=== PATIENT | female | born 1965 | race African-American/Black ===

== ENCOUNTER 2018-03-30 20:21 | Emergency (ER) | payer MEDICAID ==
--- NOTE | 2018-03-30 20:41 | ER Document Report ---
ED Medical Screen (RME) - General Chief Complaint: Flank Pain Stated Complaint: SIDE PAIN Time Seen by Provider: 03/30/18 20:40 Notes: Patient is a 52-year-old female who presents with left-sided abdominal pain and malodorous urine. She also has multiple other complaints. PE: NAD. Abdomen soft and non-tender (although exam limited in RME chair). I have greeted and performed a rapid initial assessment of this patient. A comprehensive ED assessment and evaluation of the patient, analysis of test results and completion of the medical decision making process will be conducted by additional ED providers. TRAVEL OUTSIDE OF THE [place] IN LAST 30 DAYS: No - Related Data Allergies/Adverse Reactions: Penicillins Allergy (Verified 03/30/18 20:25) Past Medical History - Social History Chew tobacco use (# tins/day): No Frequency of alcohol use: None Drug Abuse: None Endocrine Medical History: Reports: Hx Diabetes Mellitus Type 2 Renal/ Medical History: Denies: Hx Peritoneal Dialysis Past Surgical History: Reports: Hx Cholecystectomy Physical Exam - Vital signs Vitals: Temp Pulse Resp BP Pulse Ox 99.1 F 82 20 168/122 H 98 03/30/18 20:26 03/30/18 20:26 03/30/18 20:26 03/30/18 20:26 03/30/18 20:26 Course - Vital Signs Vital signs: Temp Pulse Resp BP Pulse Ox 99.1 F 82 20 168/122 H 98 03/30/18 20:26 03/30/18 20:26 03/30/18 20:26 03/30/18 20:26 03/30/18 20:26 Doctor's Discharge - Discharge Referrals: MARCUSNO [Primary Care Provider] - Follow up as needed
[2018-03-30 21:09] LABS: APPEARANCE,URINE CLEAR; BILIRUBIN,URINE NEGATIVE (NEGATIVE); COLOR,URINE YELLOW; GLUCOSE, URINE NEGATIVE (NEGATIVE); KETONES,URINE NEGATIVE (NEGATIVE); LEUKOCYTE ESTERASE,URINE LARGE (NEGATIVE); NITRITE,URINE NEGATIVE (NEGATIVE); PROTEIN,URINE 30 mg/dL (NEGATIVE); URINE SPECIFIC GRAVITY 1.015; UROBILINOGEN,URINE NEGATIVE mg/dL (<2.0)
[2018-03-30] MEDS ORDERED: CEPHALEXIN 500 MG CAPSULE PO ONE (21:29)
--- NOTE | 2018-03-30 22:03 | ER Document Report ---
ED General - General TRAVEL OUTSIDE OF THE [place] IN LAST 30 DAYS: No - General Chief Complaint: Flank Pain Stated Complaint: SIDE PAIN Time Seen by Provider: 03/30/18 20:40 Notes: Patient is a 52-year-old female who presents with a multitude of complaints but her main concern is about having malodorous urine for the past 4-5 days as well as suprapubic abdominal pain. Describes the pain as dull, aching, annoying pain. Contrary to triage assessment patient is denying any flank pain on my assessment. Patient is eating and drinking during the assessment continues to do so during the entirety of the history. She states that nothing is new or different that prompted her to come to the emergency department today. She denies a history of similar symptoms in the past. She has not seen her primary doctor regarding today's concerns. She denies any fever or constitutional symptoms. ([place]) - Related Data Allergies/Adverse Reactions: Penicillins Allergy (Verified 03/30/18 20:25) Past Medical History - General Information source: Patient - Social History Smoking Status: Never Smoker Chew tobacco use (# tins/day): No Frequency of alcohol use: None Drug Abuse: None Lives with: Spouse/Significant other Family History: Reviewed & Not Pertinent Patient has suicidal ideation: No Patient has homicidal ideation: No Endocrine Medical History: Reports: Hx Diabetes Mellitus Type 2 Renal/ Medical History: Denies: Hx Peritoneal Dialysis Past Surgical History: Reports: Hx Cholecystectomy Review of Systems - Review of Systems Notes: Constitutional: Negative for fever. HENT: Negative for sore throat. Eyes: Negative for visual changes. Cardiovascular: Negative for chest pain. Respiratory: Negative for shortness of breath. Gastrointestinal: Positive for suprapubic abdominal discomfort Genitourinary: Positive for dysuria. Musculoskeletal: Negative for back pain. Skin: Negative for rash. Neurological: Negative for headaches, weakness or numbness. 10 point ROS negative except as marked above and in HPI. ([place]) Physical Exam - Vital signs Interpretation: Hypertensive - Vital signs Vitals: Temp Pulse Resp BP Pulse Ox 99.1 F 82 20 168/122 H 98 03/30/18 20:26 03/30/18 20:26 03/30/18 20:26 03/30/18 20:26 03/30/18 20:26 Notes: PHYSICAL EXAMINATION: GENERAL: Well-appearing, well-nourished and in no acute distress. HEAD: Atraumatic, normocephalic. EYES: Pupils equal round and reactive to light, extraocular movements intact, sclera anicteric, conjunctiva are normal. ENT: nares patent, oropharynx clear without exudates. Moist mucous membranes. NECK: Normal range of motion, supple without lymphadenopathy LUNGS: Breath sounds clear to auscultation bilaterally and equal. No wheezes rales or rhonchi. HEART: Regular rate and rhythm without murmurs ABDOMEN: Soft, morbidly obese abdomen, nontender, normoactive bowel sounds. No guarding, no rebound. No masses appreciated. EXTREMITIES: Normal range of motion, no pitting or edema. No cyanosis. NEUROLOGICAL: No focal neurological deficits. Moves all extremities spontaneously and on command. PSYCH: Normal mood, normal affect. SKIN: Warm, Dry, normal turgor, no rashes or lesions noted. ([place]) Course - Re-evaluation Re-evalutation: 03/30/18 22:02 Patient presents with symptoms consistent with an acute cystitis. Vitals wnl. Patient does complain of some mild suprapubic abdominal tenderness any flank tenderness or constitution symptoms to suggest ascending infection at this time. Patient is well in appearance, tolerating oral intake without difficulty. No focal abdominal tenderness to suggest acute appendicitis, biliary pathology , acute pancreatitis, tubo-ovarian abscesses, or pelvic inflammatory disease. Patient will be started on antibiotics at this time. A culture has been sent. At this time will discharge with return precautions and follow-up recommendations. Verbal discharge instructions given a the bedside and opportunity for questions given. Medication warnings reviewed. Patient is in agreement with this plan and has verbalized understanding of return precautions and the need for primary care follow-up in the next 24-72 hours. ([place]) - Vital Signs Vital signs: Temp Pulse Resp BP Pulse Ox 98.0 F 73 14 154/103 H 98 03/30/18 22:40 03/30/18 22:40 03/30/18 22:40 03/30/18 22:40 03/30/18 22:40 - Laboratory Laboratory results interpreted by me: 03/30/18 20:45 Urine Protein 30 H Ur Leukocyte Esterase LARGE H - EKG Interpretation by Me Additional EKG results interpreted by me: 03/30/18 22:02 Sinus rhythm. Rate 75. No ST elevations or depressions. QTC is 492. ([place]) Discharge - Discharge Clinical Impression: Lower abdominal pain Urinary tract infection Qualifiers: Urinary tract infection type: acute cystitis Hematuria presence: without hematuria Qualified Code(s): N30.00 - Acute cystitis without hematuria Condition: Good Disposition: HOME, SELF-CARE Additional Instructions: Your urine shows findings consistent with a urinary tract infection. Please take all the antibiotics as directed even if your symptoms have improved. Please follow-up with your primary care physician as needed. Return to emergency room if you develop fever >101F, persistent vomiting, become lethargic , have severe pain in your sides, or any other symptoms that are concerning to you. Your EKG is normal today. Prescriptions: Cephalexin Monohydrate [Keflex 500 mg Capsule] 500 mg PO Q6H 5 Days capsule Referrals: LOCALMD,NO [NO LOCAL MD] - Follow up as needed
[2018-03-30 22:48] VITALS: BP 154/103
--- NOTE | 2018-03-31 05:15 | EKG REPORT ---
SEVERITY:- ABNORMAL ECG - SINUS [id number] BORDERLINE PROLONGED QT INTERVAL NONSPECIFIC ST-T CHANGES LATERAL LEADS : Confirmed by: Guy Yan MD 31-Mar-2018 05:14:49
== END 2018-03-30 22:47 | disposition home or self-care (01) ==
LOC: ER 20:21
DX: N30.00 Acute cystitis without hematuria (principal); R10.30 Lower abdominal pain, unspecified; Z88.0 Allergy status to penicillin
CPT/HCPCS: 36415; 81001; 87086; 93005; 93010; 99284